=== PATIENT | female | born 1960 | race African-American/Black ===

== ENCOUNTER 2019-02-09 12:17 | Emergency (ER) | payer MEDICAID, OTHER ==
[~2019-02-09] VITALS: Ht 167.6 cm; Wt 66.0 kg
[2019-02-09 12:38] VITALS: BP 182/120
== END 2019-02-09 14:09 | disposition left against medical advice (07) ==
LOC: ER 12:17
DX: Z53.21 Procedure and treatment not carried out due to patient leaving prior to being seen by health care provider (principal)